=== PATIENT | male | born 1975 | race Caucasian/White ===

== ENCOUNTER 2017-05-15 15:14 | Emergency (ER) | payer OTHER ==
[~2017-05-15] VITALS: Ht 167.6 cm; Wt 92.0 kg
[~2017-05-15 15:14] MED LIST: ACET500C5 PO; OMEP20CA9 PO; RANI150T9 PO
[2017-05-15 15:17] VITALS: Ht 167.6 cm; Wt 92.0 kg
--- NOTE | 2017-05-15 16:25 | ERD ---
ER Documentation Chief Complaint Date/Time DATE: 05/15/17 TIME: 16:23 Chief Complaint Patient complains of abdominal pain and rectal bleed x 1 week HPI This is a 41-year-old male who presents the emergency department today complaining of rectal bleeding for the past week. States that he did have some constipation earlier in the week but has had rectal bleeding since that time. States that there is been blood in the toilet. Denies any fevers or chills, vomiting. States he does have some upper abdominal pain. ROS All systems reviewed and are negative except as per history of present illness. Medications Home Meds Active Scripts Docusate Sodium* (Colace*) 100 Mg Capsule, 100 MG PO TID, #30 CAP Prov:JULIEN HARRINGTON PA-C 05/15/17 Polyethylene Glycol* (Miralax*) 17 Gm Powd.pack, 17 GM PO DAILY, #14 Prov:JULIEN HARRINGTON PA-C 05/15/17 Famotidine* (Pepcid*) 20 Mg Tablet, 20 MG PO BID for 10 Days, TAB Prov:JULIEN HARRINGTON PA-C 05/15/17 Acetaminophen* (Tylophen*) 500 Mg Capsule, 1 CAP PO Q6H Y for PAIN AND OR ELEVATED TEMP, #30 CAP Prov:JULIEN HARRINGTON PA-C 05/15/17 Acetaminophen* (Tylophen*) 500 Mg Capsule, 500 MG PO Q6H Y for PAIN, #20 TAB Prov:JOSE CARLOS PAUL DO 10/11/15 Omeprazole* (Prilosec*) 20 Mg Capsule.dr, 20 MG PO DAILY, #60 CAP Prov:JOSE CARLOS PAUL DO 10/11/15 Ranitidine Hcl* (Zantac*) 150 Mg Tablet, 150 MG PO BID for EPIGASTRIC PAIN, #60 TAB Prov:JOSE CARLOS PAUL DO 10/11/15 Allergies Allergies: Coded Allergies: No Known Drug Allergies (Verified Allergy, Mild, 10/11/15) PMhx/Soc History of Surgery: No Anesthesia Reaction: No Hx Neurological Disorder: No Hx Respiratory Disorders: No Hx Cardiac Disorders: No Hx Psychiatric Problems: No Hx Miscellaneous Medical Probl: No Hx Alcohol Use: No Hx Substance Use: No Hx Tobacco Use: No Smoking Status: Never smoker Physical Exam Vitals Vital Signs Date Time Temp Pulse Resp B/P Pulse Ox O2 Delivery O2 Flow Rate FiO2 05/15/17 15:17 99.0 98 20 166/99 99 Physical Exam Const: NAD Head: Atraumatic Eyes: Normal Conjunctiva ENT: Normal External Ears, Nose and Mouth. Neck: Full range of motion..~ No meningismus. Resp: Clear to auscultation bilaterally Cardio: Regular rate and rhythm, no murmurs Abd: Soft, epigastric tenderness non distended. Normal bowel sounds : No evidence of external hemorrhoids. Skin: No petechiae or rashes Back: No midline or flank tenderness Ext: No cyanosis, or edema Neur: Awake and alert Psych: Normal Mood and Affect Result Diagram: 05/15/17 1632 05/15/17 1632 Results 24 hrs Laboratory Tests Test 05/15/17 16:10 05/15/17 16:26 05/15/17 16:32 Stool Occult Blood NEGATIVE Urine Color YELLOW Urine Clarity CLEAR Urine pH 5.0 Urine Specific [place] 1.023 Urine Ketones NEGATIVEmg/dL Urine Nitrite NEGATIVEmg/dL Urine Bilirubin NEGATIVEmg/dL Urine Urobilinogen NEGATIVEmg/dL Urine Leukocyte Esterase NEGATIVELeu/ul Urine Hemoglobin NEGATIVEmg/dL Urine Glucose NEGATIVEmg/dL Urine Total Protein NEGATIVEmg/dl White Blood Count 8.510^3/ul Red Blood Count 4.7810^6/ul Hemoglobin 15.1g/dl Hematocrit 43.8% Mean Corpuscular Volume 91.6fl Mean Corpuscular Hemoglobin 31.6pg Mean Corpuscular Hemoglobin Concent 34.5g/dl Red Cell Distribution Width 12.7% Platelet Count 94400^3/UL Mean Platelet Volume 10.4fl Neutrophils % 54.8% Lymphocytes % 36.9% Monocytes % 6.7% Eosinophils % 1.3% Basophils % 0.2% Nucleated Red Blood Cells % 0.0/100WBC Neutrophils # 4.610^3/ul Lymphocytes # 3.110^3/ul Monocytes # 0.610^3/ul Eosinophils # 0.110^3/ul Basophils # 0.010^3/ul Nucleated Red Blood Cells # 0.010^3/ul Sodium Level 137mmol/L Potassium Level 3.7mmol/L Chloride Level 106mmol/L Carbon Dioxide Level 27mmol/L Anion Gap 8 Blood Urea Nitrogen 12mg/dl Creatinine 0.96mg/dl Glucose Level 103mg/dl Calcium Level 9.8mg/dl Total Bilirubin 0.2mg/dl Direct Bilirubin 0.00mg/dl Indirect Bilirubin 0.2mg/dl Aspartate Amino Transf (AST/SGOT) 54IU/L Alanine Aminotransferase (ALT/SGPT) 99IU/L Alkaline Phosphatase 82IU/L Total Protein 8.3g/dl Albumin 4.5g/dl Globulin 3.80g/dl Albumin/Globulin Ratio 1.18 Lipase 45U/L Current Medications Medications (Trade) Dose Ordered Sig/Carla Route PRN Reason Start Time Stop Time Status Last Admin Dose Admin Famotidine (Pepcid) 20 mg ONCE ONCE PO 05/15/17 16:30 05/15/17 16:31 DC 05/15/17 16:27 Morphine Sulfate (morphine) 4 mg ONCE STAT IV 05/15/17 16:42 05/15/17 16:43 DC 05/15/17 16:56 Ondansetron HCl (Zofran Inj) 4 mg ONCE STAT IV 05/15/17 16:42 05/15/17 16:43 DC 05/15/17 16:56 DIAGNOSTIC IMAGING REPORT Patient: LIGIA NEWMAN : 1975 Age: 41 Sex: M MR #: [id number] DOS: 05/15/17 1618 Ordering MD: JULIEN HARRINGTON PA-C Location: E Room/Bed: PROCEDURE: CT abdomen and pelvis without contrast. CLINICAL INDICATION: Rectal bleeding. TECHNIQUE: CT of the abdomen and pelvis without contrast was performed on a multidetector high-resolution CT scanner. Coronal and sagittal reformatted images were obtained from the axial source images. Images were reviewed on a high-resolution PACS workstation. The total exam CTDI equals 19.25 mGy and the total exam DLP equals 12 76.54 mGy-cm. One or more of the following dose reduction techniques were used: - Automated exposure control. - Adjustment of the mA and/or kV according to patient size. - Use of iterative reconstruction technique. COMPARISON: None available. FINDINGS: Visualized lower thorax: The visualized lung bases are clear. The visualized heart is unremarkable. Hepatobiliary system and spleen: There is diffuse fatty infiltration of the liver. There is no intra or extrahepatic biliary ductal dilatation. The gallbladder is grossly unremarkable. The spleen is grossly unremarkable. The pancreas is grossly unremarkable. Adrenal glands and genitourinary system: The adrenal glands are grossly unremarkable. There is no nephrolithiasis or hydronephrosis. The urinary bladder is grossly unremarkable. The prostate gland and seminal vesicles are grossly unremarkable. Gastrointestinal system: There is no bowel wall thickening or evidence of obstruction. The appendix is in the right lower quadrant and is unremarkable. Peritoneum, vascular, and lymphatics: There is no free intraperitoneal air or free fluid. There is no mesenteric or retroperitoneal adenopathy. The aorta is nonaneurysmal. Musculoskeletal system and soft tissues: There are no concerning osseous lesions. The soft tissues are unremarkable. IMPRESSION: 1. Hepatic steatosis. 2. Otherwise, unremarkable examination. RPTAT: HLBP .Victor Hugo Cruz MD, MD Date Time Electronically viewed and signed by .Victor Hugo Cruz MD, MD on 05/15/2017 17:43 .P/ CC: JULIEN HARRINGTON PA-C Procedures/[facility] This is a 41-year-old male who presents the emergency department today complaining of some rectal bleeding for the past week as well as some upper abdominal pain. Patient complains I did obtain laboratory work as well as imaging. Laboratory workup no elevated white blood cell count. He is not anemic. Platelets are within normal limits. Electrolytes are within normal limits. Glucose is within normal limits. Liver enzymes are mildly elevated. Lipase is within normal limits. occult blood is negative UA is negative for infection CT abdomen pelvis noncontrast is hepatic steatosis otherwise unremarkable. There is no bowel wall thickening or evidence of obstruction. Appendix is unremarkable. There is diffuse fatty infiltration of the liver there is no intra-or extrahepatic biliary ductal dilatation. Gallbladder is unremarkable. Patient symptoms at this time is consistent with abdominal pain of uncertain etiology and stable rectal bleeding however there does not appear to be gross bleeding and this is possibly due to internal hemorrhoids as there is no evidence of external hemorrhoids. I have explained this to the patient. His hemoglobin is well within normal limits and there is no indication for transfusion at this time. Patient was instructed to follow-up with his primary care doctor for referral to GI specialist Patient was given Pepcid pain, Zofran here in the emergency department and pain improved. I will give him a prescription for Tylenol, Pepcid, MiraLAX and Colace for home At this time the patient is stable for discharge and outpatient management. Patient should follow up with their PCP in the next 1-2 days. He was given a list of resources. They may return to the emergency department sooner for any persistent or worsening of symptoms. Patient understood and agreed with the plan. Departure Diagnosis: Primary Impression: Rectal bleeding Additional Impression: Abdominal pain Abdominal location: upper abdomen, unspecified Qualified Code: R10.10 - Pain of upper abdomen Condition: JULIEN Jones PA-C May 15, 2017 16:25
[2017-05-15] MEDS ORDERED: FAMOTIDINE 20 MG TAB PO ONE (16:30)
[2017-05-15] MEDS ORDERED: ONDANSETRON 4 MG INJ IV STA (16:42)
[2017-05-15] MEDS ORDERED: morphine 4 MG/ML VIAL IV STA (16:42)
[2017-05-15 16:43] LABS: BASOPHILS % 0.2 % (0.0-2.0); EOSINOPHILS # 0.1 10^3/ul (0.0-0.5); EOSINOPHILS % 1.3 % (0.0-7.0); HEMATOCRIT 43.8 % (42.0-52.0); HEMOGLOBIN 15.1 g/dl (14.0-18.0); LYMPHOCYTES # 3.1 10^3/ul (0.8-2.9); LYMPHOCYTES % 36.9 % (15.0-51.0); MEAN CORPUSCULAR HEMOGLOBIN 31.6 pg (29.0-33.0); MEAN CORPUSCULAR HGB CONC 34.5 g/dl (32.0-37.0); MEAN CORPUSCULAR VOLUME 91.6 fl (82.0-101.0); MEAN PLATELET VOLUME 10.4 fl (7.4-10.4); MONOCYTE # 0.6 10^3/ul (0.3-0.9); MONOCYTES % 6.7 % (0.0-11.0); NEUTROPHIL # 4.6 10^3/ul (1.6-7.5); NEUTROPHILS % 54.8 % (39.0-77.0); PLATELET COUNT 271 10^3/UL (140-415); RED BLOOD COUNT 4.78 10^6/ul (4.70-6.10); RED CELL DISTRIBUTION WIDTH 12.7 % (11.5-14.5); WHITE BLOOD COUNT 8.5 10^3/ul (4.8-10.8)
[2017-05-15 16:46] LABS: ADD UMIC NO; UR ASCORBIC ACID 40 mg/dL (NEGATIVE); UR BILIRUBIN (Dip) NEGATIVE (NEGATIVE); UR BLOOD (Dip) NEGATIVE (NEGATIVE); UR CLARITY CLEAR (CLEAR); UR COLOR YELLOW (YELLOW); UR GLUCOSE (Dip) NEGATIVE (NEGATIVE); UR KETONES (Dip) NEGATIVE (NEGATIVE); UR LEUKOCYTE ESTERASE (Dip) NEGATIVE Leu/ul (NEGATIVE); UR NITRITE (Dip) NEGATIVE (NEGATIVE); UR SPECIFIC GRAVITY (Dip) 1.023 (1.003-1.030); UR TOTAL PROTEIN (Dip) NEGATIVE (NEGATIVE); UR UROBILINOGEN (Dip) NEGATIVE (NEGATIVE)
[2017-05-15 17:23] LABS: ALBUMIN 4.5 g/dl (3.3-4.9); ALBUMIN/GLOBULIN RATIO 1.18; BILIRUBIN,INDIRECT 0.2 mg/dl (0-1.1); BILIRUBIN,TOTAL 0.2 mg/dl (0.2-1.3); CALCIUM 9.8 mg/dl (8.4-10.2); CREATININE 0.96 mg/dl (0.61-1.24); POTASSIUM 3.7 mmol/L (3.5-5.1); TOTAL PROTEIN 8.3 g/dl (6.1-8.1)
--- NOTE | 2017-05-15 17:43 | RADRPT ---
PROCEDURE: CT abdomen and pelvis without contrast. CLINICAL INDICATION: Rectal bleeding. TECHNIQUE: CT of the abdomen and pelvis without contrast was performed on a multidetector high-reso lution CT scanner. Coronal and sagittal reformatted images were obtained from the axial source image s. Images were reviewed on a high-resolution PACS workstation. The total exam CTDI equals 19.25 mGy and the total exam DLP equals 12 76.54 mGy-cm. One or more of the following dose reduction techniques were used: - Automated exposure control. - Adjustment of the mA and/or kV according to patient size. - Use of iterative reconstruction technique. COMPARISON: None available. FINDINGS: Visualized lower thorax: The visualized lung bases are clear. The visualized heart is unremarkable. Hepatobiliary system and spleen: There is diffuse fatty infiltration of the liver. There is no intr a or extrahepatic biliary ductal dilatation. The gallbladder is grossly unremarkable. The spleen is grossly unremarkable. The pancreas is grossly unremarkable. Adrenal glands and genitourinary system: The adrenal glands are grossly unremarkable. There is no n ephrolithiasis or hydronephrosis. The urinary bladder is grossly unremarkable. The prostate gland an d seminal vesicles are grossly unremarkable. Gastrointestinal system: There is no bowel wall thickening or evidence of obstruction. The appendi x is in the right lower quadrant and is unremarkable. Peritoneum, vascular, and lymphatics: There is no free intraperitoneal air or free fluid. There is no mesenteric or retroperitoneal adenopathy. The aorta is nonaneurysmal. Musculoskeletal system and soft tissues: There are no concerning osseous lesions. The soft tissues are unremarkable. IMPRESSION: 1. Hepatic steatosis. 2. Otherwise, unremarkable examination. RPTAT: HLBP .Victor Hugo Cruz MD, MD Date Time Electronically viewed and signed by .Victor Hugo Cruz MD, MD on 05/15/2017 17:43 .P/
[2017-05-15] MEDS ORDERED: ACET500C5 PO (17:56)
[2017-05-15] MEDS ORDERED: POLY17PO6 PO (17:57)
[2017-05-15] MEDS ORDERED: DOCU-144 PO (17:57)
[2017-05-15] MEDS ORDERED: FAMO-96 PO (17:57)
[2017-05-15 18:15] VITALS: BP 142/88; PULSE 88; RESP 20
== END 2017-05-15 18:17 | disposition home or self-care (01) ==
LOC: FTE 15:14
DX: K62.5 Hemorrhage of anus and rectum (principal)
CPT/HCPCS: 74176; 80053; 81003; 82270; 83690; 85025; 96374; 96375; J2270; J2405; Z7502; Z7610